=== PATIENT | female | born 1960 | race Caucasian/White ===

== ENCOUNTER 2025-05-14 09:10 | Emergency (ER) | payer BC ==
[~2025-05-14] VITALS: Ht 170.2 cm; Wt 127.0 kg
[2025-05-14 10:14] LABS: BASOPHILS % 0.7 % (0.0-1.0); EOSINOPHILS % 2.1 % (0.0-6.0); LYMPHOCYTES % 11.9 % (18.0-39.1); MONOCYTES % 7.7 % (4.4-11.3); NEUTROPHILS % 77.1 % (38.7-80.0); RED CELL DISTRIBUTION WIDTH 13.6 % (11.7-14.4)
[2025-05-14 10:29] VITALS: PULSE 50; RESP 16; TEMP 98.6
[2025-05-14 10:37] LABS: EST GLOMERULAR FILTRATION RATE 39.0 ML/MIN (>=60)
[2025-05-14 12:00] VITALS: BP 141/84; PULSE 60; RESP 21; O2SAT 97
== END 2025-05-14 11:59 | disposition home or self-care (01) ==
LOC: ER 09:15
DX: E11.649 Type 2 diabetes mellitus with hypoglycemia without coma (principal); E03.9 Hypothyroidism, unspecified; I10 Essential (primary) hypertension; Z96.652 Presence of left artificial knee joint
CPT/HCPCS: 36415; 80053; 82948; 83690; 85025; 93005; 99283